=== PATIENT | female | born 1965 | race Caucasian/White ===

== ENCOUNTER 2023-03-17 22:04 | Emergency (ER) | payer OTHER ==
[~2023-03-17 22:04] MED LIST: Iopamidol 370 76% 200 ML VIAL ONE; Sodium Chloride 0.9% 100 ML BAG ONE
[2023-03-17 23:03] LABS: INR-International Normal Ratio 1.2; PTT 35.5 sec (22.9-36.1)
[2023-03-17 23:06] LABS: D-Dimer Test 3.95 *mcg/mL (0.27-0.43)
[2023-03-17 23:07] LABS: Bilirubin Negative (Negative); Blood, Urine Trace (Negative); Glucose, Urine (Dipstick) Negative (Negative); Ketone, Urine Negative (Negative); Leukocyte Small (Negative); Nitrite Negative (Negative); Protein, Urine (Dipstick) Negative (Neg-Trace); Urobilinogen 0.2 mg/dL (Less than 2)
[2023-03-17 23:13] LABS: Bacteria/HPF Rare-Few HPF (None Seen); CAUTI Indications for Culture Dysuria,urgency,freq; Clarity Hazy (Clear); RBC/HPF 0-3 HPF (0-3)
[2023-03-17 23:14] LABS: Urine Culture Reflex Yes Yes
[2023-03-17 23:16] LABS: #Basophils 0.2 thou/uL (0.0-0.2); #Eosinphils 0.1 thou/uL (0.0-0.7); #Monocytes 0.9 thou/uL (0.11-0.59); #Neutrophils 3.5 thou/uL (1.40-6.50); %Basophils 2.1 % (0.0-1.0); %Eosinophils 1.1 % (0.0-10.0); %Lymphocytes 39.2 % (21.0-51.0); %Monocytes 11.8 % (0.0-10.0); %Neutrophils 45.8 % (42.0-75.0); ALT (SGPT) 31 U/L (8-55); AST (SGOT) 70 U/L (5-34); Albumin 2.9 g/dL (3.5-5.0); Alkaline Phosphatase 140 U/L (40-110); Anion Gap 17 mmol/L (10-20); BUN (Urea Nitrogen) Less than 4 mg/dL (9.8-20.1); Bilirubin, Total 1.2 mg/dL (0.2-1.2); Calc. Creatinine Clearance 0 mL/min (70-130); Calcium 7.8 mg/dL (7.8-10.44); Carbon Dioxide 20 mmol/L (22-29); Chloride 107 mmol/L (98-107); Estimated GFR 103; Globulin 2.8 g/dL (2.4-3.5); Glucose 86 mg/dL (70-105); Hematocrit 29.8 % (36.0-47.0); Hemoglobin 10.2 g/dL (12.0-16.0); Lipase 6 U/L (8-78); Magnesium 1.5 mg/dL (1.6-2.6); Mean Corpuscular HGB CONC 34.1 g/dL (32.0-36.0); Mean Corpuscular Hemoglobin 33.5 pg (27.0-31.0); Mean Corpuscular Volume 98.3 fl (78.0-98.0); Mean Platelet Volume 9.8 fL (7.4-10.4); Platelet Count 203 10x3/uL (130-400); Potassium 3.1 mmol/L (3.5-5.1); Protein, Total 5.7 g/dL (6.0-8.3); RBC Distribution Width 15.7 % (11.5-14.5); Red Blood Cell (RBC) Count 3.04 mill/uL (4.20-5.40); Sodium 141 mmol/L (136-145); Troponin I 0.016 ng/mL (< 0.028); White Blood Cell (WBC) Count 7.5 10x3/uL (4.8-10.8)
[2023-03-17 23:41] LABS: Base Excess-Venous -2.2 mmol/L (-2.0 to 3.0); Bicarbonate (HCO3v) 19.8 mmol/L (22.0-28.0); CO2 Tension (PvCO2) 25.8 mmHg (42.0-51.0); Calcium, Ionized 0.85 mmol/L (1.15-1.33); Chloride 109 mmol/L (98-107); Hemoglobin - Calc 11.6 g/dL (12.0-16.0); Potassium 4.6 mmol/L (3.5-5.1); Sodium 138 mmol/L (138-145); T. Carbon Dioxide 20.6 mmol/L (22.0-28.0); vO2 Saturation-calc 99.5 % (60.0-85.0)
[2023-03-18] MEDS ORDERED: Furosemide 20 MG/2 ML VIAL ONE (00:01)
[2023-03-18] MEDS ORDERED: Magnesium 2 GM/50 ML BAG (IN WATER) ONE (00:01)
[2023-03-18] MEDS ORDERED: Sodium Chloride 0.9% 500 ML ONE ×2 (00:01→02:09)
[2023-03-18] MEDS ORDERED: Potassium Chloride 20 MEQ TAB ONE (00:01)
[2023-03-18] MEDS ORDERED: Albumin 25% 100 ML ONE ×2 (00:01→03:41)
[2023-03-18] MEDS ORDERED: Hydrocortisone 1% Cream 30 GM TUBE TOP SCH (00:45)
[2023-03-18 04:14] LABS: SARS-CoV-2 NAA Rapid Test Not Detected (NotDetected)
[2023-03-18] MEDS ORDERED: Sodium Chloride 0.9% 1,000 ML ONE (05:07)
== END 2023-03-18 05:43 ==
LOC: MADERS 22:04
DX: K70.31 Alcoholic cirrhosis of liver with ascites (principal); L25.9 Unspecified contact dermatitis, unspecified cause; E87.6 Hypokalemia; E83.42 Hypomagnesemia; E87.20 Acidosis, unspecified; I45.81 Long QT syndrome; R00.0 Tachycardia, unspecified; Z20.822 Contact with and (suspected) exposure to COVID-19
CPT/HCPCS: 36415; 71045; 71275; 80053; 81001; 82330; 82803; 83605; 83690; 83735; 83880; 84443; 84484; 85025; 85379; 85610; 85730; 86850; 86900; 86901; 87040; 87086; 93005; 94760; 96361; 96365; 96366; 96367; 96375; J1940; J3475; J3490; J7030; J7050; P9047; U0002